=== PATIENT | female | born 1965 | race American Indian/Alaskan Native ===

== ENCOUNTER 2017-01-27 06:11 | Emergency (ER) | payer OTHER ==
[2017-01-27 06:11] VITALS: BMI 33.6
[2017-01-27 06:47] VITALS: RESP 18; TEMP 97.9; O2SAT 100
[2017-01-27] MEDS ORDERED: DiphenhydrAMINE 12.5 mg/5 ml LIQ UD (5 ml) PO STA (07:13)
--- NOTE | 2017-01-27 07:16 | ED PDOC ---
Arrival/HPI - General Chief Complaint: Eye Problem Time Seen by Provider: 01/27/17 07:06 Historian: Patient - History of Present Illness Narrative History of Present Illness (Text): 01/27/17 07:10 Tiffanie Muñoz is a 51 year old female whose past medical history includes hypertension, presents to the Emergency department complaining of left eye itchiness and watery discharge that began last night after 21:00. Patient notes she wears glasses, but does not wear contacts. She denies trauma to eye. Denies scratching eye. Patient denies shortness of breath, headache, fever, chills cough, nausea, vomiting, diarrhea, or other complaints. Time/Duration: Other (10 hours prior to arrival) Symptom Onset: Sudden Symptom Course: Unchanged Activities at Onset: Light Modifying Factors (Text): None Associated Symptoms (Text): blurry vision and watery discharge Past Medical History - Provider Review Nursing Documentation Reviewed: Yes - Infectious Disease Hx of Infectious Diseases: None - Tetanus Immunization Tetanus Immunization: Unknown - Cardiac Hx Cardiac Disorders: Yes (palpitations) Hx Hypertension: Yes - Pulmonary Hx Respiratory Disorders: Yes Hx Sleep Apnea: Yes (PT. WEARS CPAP MACHINE HS) - Neurological Hx Neurological Disorder: No Other/Comment: PT. FOR SURGERY 09/27/15- RIGHT ENDOSCOPIC CARPAL TUNNEL RELEASE , RIGHT ENDOSCOPIC CUBITAL TUNNEL RELEASE, STEROID INJECTIONS TO RIGHT MIDDLE, INDEX AND THUMB. DX: CARPAL TUNNEL TRIGGER FINGER. - HEENT Hx HEENT Disorder: No - Renal Hx Renal Disorder: No - Endocrine/Metabolic Hx Endocrine Disorders: No - Hematological/Oncological Hx Blood Disorders: No - Integumentary Hx Dermatological Disorder: Yes Hx Eczema: Yes (no longer) - Musculoskeletal/Rheumatological Hx Musculoskeletal Disorders: Yes Hx Back Pain: Yes Hx Herniated Disk: Yes (lumbar) Other/Comment: HX:CARPAL TUNNEL SYNDROME BILAT. - Gastrointestinal Hx Gastrointestinal Disorders: No - Genitourinary/Gynecological Hx Genitourinary Disorders: Yes (hx fibroid uterus) - Psychiatric Hx Psychophysiologic Disorder: No Hx Depression: No Hx Emotional Abuse: No Hx Physical Abuse: No Hx Substance Use: No - Surgical History Hx Hysterectomy: Yes Other/Comment: 03/29/16-EXCISION MASS LEFT HAND. 09/27/15-RIGHT CARPAL/ CUBITALTUNNEL RELEASE ENDOSCOPIC RIGHT ELBO WITH STEROID INJECTION THUMB, INDEX AND MIDDLE FINGERS. - Anesthesia Hx Anesthesia: Yes Hx Anesthesia Reactions: No Hx Malignant Hyperthermia: No - Suicidal Assessment Feels Threatened In Home Enviroment: No Family/Social History - Physician Review Nursing Documentation Reviewed: Yes Family/Social History: Unknown Family HX Smoking Status: Never Smoked Hx Alcohol Use: No Hx Substance Use: No Hx Substance Use Treatment: No Allergies/Home Meds Allergies/Adverse Reactions: Allergies amoxicillin Allergy (Severe, Verified 07/10/16 07:51) SWELLING Penicillins Allergy (Severe, Verified 01/27/17 06:20) SWELLING Home Medications: Home Meds Medication Instructions Recorded Confirmed Enalapril Maleate [Vasotec] 10 cap PO DAILY 09/27/15 01/27/17 Review of Systems - Review of Systems Constitutional: absent: Fevers Eyes: Other (itchiness, watery discharge to L eye). absent: Vision Changes, Photophobia ENT: absent: Hearing Changes, Sore Throat Respiratory: absent: SOB, Cough, Sputum, Wheezing Cardiovascular: absent: Chest Pain Gastrointestinal: absent: Abdominal Pain, Constipation, Diarrhea, Nausea, Vomiting Genitourinary Female: absent: Dysuria Musculoskeletal: absent: Neck Pain Skin: absent: Rash Neurological: absent: Headache Endocrine: absent: Diaphoresis Hemo/Lymphatic: absent: Easy Bleeding Psychiatric: absent: Anxiety Physical Exam Vital Signs Reviewed: Yes Vital Signs Temp Pulse Resp BP Pulse Ox 01/27/17 07:44 67 18 155/103 H 100 01/27/17 06:40 97.9 F 75 18 170/124 H 100 Temperature: Afebrile Blood Pressure: Hypertensive Pulse: Regular Respiratory Rate: Normal Appearance: Positive for: Well-Appearing, Non-Toxic, Comfortable Pain Distress: None Mental Status: Positive for: Alert and Oriented X 3 - Systems Exam Head: Present: Atraumatic, Normocephalic Pupils: Present: PERRL. No: Non-Reactive Extroacular Muscles: Present: EOMI, Other (L: lid everted and no foreign body visualized) Conjunctiva: Present: Injected (to L) Mouth: Present: Moist Mucous Membranes Pharnyx: Present: Normal. No: ERYTHEMA, EXUDATE Neck: Present: Normal Range of Motion, Other (supple) Respiratory/Chest: Present: Clear to Auscultation, Good Air Exchange. No: Respiratory Distress, Accessory Muscle Use Cardiovascular: Present: Regular Rate and Rhythm, Normal S1, S2. No: Murmurs Upper Extremity: Present: Normal Inspection. No: Cyanosis, Edema Lower Extremity: Present: Normal Inspection. No: Edema Neurological: Present: GCS=15, CN II-XII Intact, Speech Normal Skin: Present: Warm, Dry, Normal Color. No: Rashes Psychiatric: Present: Alert, Oriented x 3, Normal Insight, Normal Concentration Medical Decision Making ED Course and Treatment: 01/27/17 07:10 Impression: 51 year old with watery discharge and injected conjunctiva to L eye. No contact lens use. No foreign body visualized. Visual acuity grossly unchanged - 20/15 R eye, 20/30 L eye. Mild decrease is likely due to copious watery discharge and patient repeatedly rubbing eye due to itchiness. Plan: -- Benadryl for itching -- drops for conjunctivitis -- Reassess and disposition Progress Notes: Patient was instructed to take hypertension medication as BP elevated in ED. She was instructed to follow up with social worker aide. Reevaluation: On reevaluation the patient is in no acute distress. I have discussed the results and plan with the patient, who expresses understanding. Patient given the opportunity to ask question, all questions were answered and there is agreement with the plan to discharge the patient home with prescription for Benadryl. Patient is stable for discharge. Patient was instructed to follow up with physician/clinic in 1-2 days or return if symptoms persist/worsen or new concerning symptoms arise. - Medication Orders Current Medication Orders: Discontinued Medications Diphenhydramine HCl (Benadryl) 25 mg PO STAT STA Stop: 01/27/17 07:14 Last Admin: 01/27/17 07:32 Dose: 25 mg - Scribe Statement The provider has reviewed the documentation as recorded by the Scribe 12/27/2016 Ashley Giles Provider Scribe Attestation: All medical record entries made by the Scribe were at my direction and personally dictated by me. I have reviewed the chart and agree that the record accurately reflects my personal performance of the history, physical exam, medical decision making, and the department course for this patient. I have also personally directed, reviewed, and agree with the discharge instructions and disposition. Disposition/Present on Arrival - Present on Arrival Any Indicators Present on Arrival: No History of DVT/PE: No History of Uncontrolled Diabetes: No Urinary Catheter: No History of Decub. Ulcer: No History Surgical Site Infection Following: None - Disposition Have Diagnosis and Disposition been Completed?: Yes Diagnosis: Conjunctivitis Disposition: HOME/ ROUTINE Disposition Time: 07:44 Patient Plan: Discharge Condition: STABLE Discharge Instructions (ExitCare): Conjunctivitis (ED) Additional Instructions: Take drops for 10 days. Follow-up with eye doctor within 2 days for further evaluation. Return to ED if condition worsens. Prescriptions: Moxifloxacin HCl [Vigamox] 2 drop OS Q6 #1 bottle Referrals: Tariq Austin MD [Primary Care Provider] - Follow up with primary Eros Rain MD [Staff Provider] - Follow up with primary Forms: [facility] (Cambodian), WORK NOTE
[2017-01-27 07:45] VITALS: BP 155/103; PULSE 67
== END 2017-01-27 07:45 | disposition home or self-care (01) ==
LOC: ED 06:11
DX: H10.9 Unspecified conjunctivitis (principal)

== ENCOUNTER 2017-02-15 10:23 | Emergency (ER) | payer OTHER ==
[2017-02-15 10:23] VITALS: BMI 33.6
[2017-02-15] MEDS ORDERED: Oxycodone/Acetaminophen 5/325 mg Tab PO STA (10:34)
--- NOTE | 2017-02-15 10:38 | ED PDOC ---
Arrival/HPI - General Chief Complaint: Back Pain Time Seen by Provider: 02/15/17 10:24 Historian: Patient - History of Present Illness Narrative History of Present Illness (Text): 02/15/17 10:35 51-year-old female presents today with low back pain status post injury. Patient states she was attempting to move a heavy patient and the patient started to fall to the ground and she caught the patient and immediately felt a pulling sensation in the lower lumbar region. Patient states she feels like her back gave out on her. She denies numbness weakness or tingling in the lower extremities. She is complaining of severe pain in the low back radius in the right lower back. She describes the pain radiating into the buttocks bilaterally greatest on the right side. She denies bladder or bowel incontinence. Denies abdominal pain. No chest pain or shortness of breath. Incident occurred prior to arrival no medications have been taken for pain at home. Patient states she does have prior history of herniated disc. Time/Duration: Prior to Arrival Symptom Onset: Sudden Symptom Course: Unchanged Quality: Aching, Tightness, Stabbing Severity Level: Severe Past Medical History - Provider Review Nursing Documentation Reviewed: Yes - Travel History Have you recently traveled outside [place] w/in the past 3 mons?: No - Infectious Disease Hx of Infectious Diseases: None - Tetanus Immunization Tetanus Immunization: Unknown - Reproductive Menopause: Yes - Cardiac Hx Cardiac Disorders: Yes (palpitations) Hx Hypertension: Yes - Pulmonary Hx Respiratory Disorders: Yes Hx Sleep Apnea: Yes (PT. WEARS CPAP MACHINE HS) - Neurological Hx Neurological Disorder: No Other/Comment: PT. FOR SURGERY 09/27/15- RIGHT ENDOSCOPIC CARPAL TUNNEL RELEASE , RIGHT ENDOSCOPIC CUBITAL TUNNEL RELEASE, STEROID INJECTIONS TO RIGHT MIDDLE, INDEX AND THUMB. DX: CARPAL TUNNEL TRIGGER FINGER. - HEENT Hx HEENT Disorder: No - Renal Hx Renal Disorder: No - Endocrine/Metabolic Hx Endocrine Disorders: No - Hematological/Oncological Hx Blood Disorders: No - Integumentary Hx Dermatological Disorder: Yes Hx Eczema: Yes (no longer) - Musculoskeletal/Rheumatological Hx Musculoskeletal Disorders: Yes Hx Back Pain: Yes Hx Herniated Disk: Yes (lumbar) Other/Comment: HX:CARPAL TUNNEL SYNDROME BILAT. - Gastrointestinal Hx Gastrointestinal Disorders: No - Genitourinary/Gynecological Hx Genitourinary Disorders: Yes (hx fibroid uterus) - Psychiatric Hx Psychophysiologic Disorder: No Hx Depression: No Hx Emotional Abuse: No Hx Physical Abuse: No Hx Substance Use: No - Surgical History Hx Hysterectomy: Yes Other/Comment: 03/29/16-EXCISION MASS LEFT HAND. 09/27/15-RIGHT CARPAL/ CUBITALTUNNEL RELEASE ENDOSCOPIC RIGHT ELBO WITH STEROID INJECTION THUMB, INDEX AND MIDDLE FINGERS. - Anesthesia Hx Anesthesia: Yes Hx Anesthesia Reactions: No Hx Malignant Hyperthermia: No - Suicidal Assessment Feels Threatened In Home Enviroment: No Family/Social History - Physician Review Nursing Documentation Reviewed: Yes Family/Social History: Unknown Family HX Smoking Status: Never Smoked Hx Alcohol Use: Yes Frequency of alcohol use: Socially Hx Substance Use: No Hx Substance Use Treatment: No Allergies/Home Meds Allergies/Adverse Reactions: Allergies amoxicillin Allergy (Severe, Verified 02/15/17 10:29) SWELLING Penicillins Allergy (Severe, Verified 02/15/17 10:29) SWELLING Home Medications: Home Meds Medication Instructions Recorded Confirmed Enalapril Maleate [Vasotec] 10 cap PO DAILY 09/27/15 02/15/17 Review of Systems - Review of Systems Constitutional: absent: Fatigue, Fevers Respiratory: absent: SOB, Cough Cardiovascular: absent: Chest Pain, Palpitations Gastrointestinal: absent: Abdominal Pain, Nausea, Vomiting Genitourinary Female: Other (no bladder or bowel incontinence.). absent: Dysuria, Frequency, Hematuria, Urine Output Changes Musculoskeletal: Back Pain. absent: Arthralgias, Neck Pain Skin: absent: Rash, Pruritis Neurological: absent: Headache, Dizziness Psychiatric: absent: Anxiety, Depression Physical Exam Vital Signs Reviewed: Yes Vital Signs Temp Pulse Resp BP Pulse Ox 02/15/17 12:46 89 18 148/82 97 02/15/17 10:38 98.4 F 96 H 18 150/92 H 96 02/15/17 10:30 82 19 150/92 H 97 Temperature: Afebrile Blood Pressure: Hypertensive Pulse: Regular Respiratory Rate: Normal Appearance: Positive for: Well-Appearing, Non-Toxic, Comfortable Pain Distress: Mild Mental Status: Positive for: Alert and Oriented X 3 - Systems Exam Head: Present: Atraumatic Mouth: Present: Moist Mucous Membranes Respiratory/Chest: Present: Clear to Auscultation Cardiovascular: Present: Regular Rate and Rhythm Abdomen: No: Tenderness, Distention, Rebound, Guarding Back: Present: Normal Inspection, Midline Tenderness, Paraspinal Tenderness (b/ l low lumbar paraspinal tenderness), Pain with Leg Raise. No: CVA Tenderness Upper Extremity: Present: Normal ROM Lower Extremity: Present: Normal ROM Neurological: Present: GCS=15 Skin: Present: Warm, Dry, Normal Color. No: Rashes Psychiatric: Present: Alert, Oriented x 3 Medical Decision Making ED Course and Treatment: 02/15/17 10:38 Patient nontoxic well-appearing in no distress with stable vital signs. Toradol, Flexeril, percocet xray LS/spine; FINDINGS: Examination limited by habitus. BONES: Alignment appears satisfactory. No listhesis. No acute displaced fracture identified. Facet arthropathy evident at L5-S1. DISC SPACES: Unremarkable. OTHER FINDINGS: Pelvic calcifications, likely phleboliths. IMPRESSION: No acute displaced fracture identified. Facet arthropathy at L5-S1. Patient reassessment: Feeling better with medications ambulating with a steady gait. Muscle strength 5 out of 5 bilaterally. I advised to followup with the employee health within the next 2 days. Return if symptoms worsen persist or new symptoms develop Impression: Back pain Motrin every 6 hours as needed for pain Flexeril one tablet every 8 hours as needed for muscle spasms: May cause drowsiness percocet; one tablet every 6 hours as needed for moderate to severe pain: May cause drowsiness Followup with employee health on Friday Followup with primary care physician within the next 2 days Return if symptoms worsen persist or if new symptoms develop - RAD Interpretation Radiology Orders: 02/15/17 10:34 LS SPINE WITH OBL > 18 YRS OLD [RAD] Stat - Medication Orders Current Medication Orders: Discontinued Medications Cyclobenzaprine HCl (Flexeril) 10 mg PO STAT STA Stop: 02/15/17 10:35 Last Admin: 02/15/17 10:43 Dose: 10 mg Ketorolac Tromethamine (Toradol) 60 mg IM STAT STA Stop: 02/15/17 10:35 Last Admin: 02/15/17 10:43 Dose: 60 mg Oxycodone/Acetaminophen (Percocet 5/325 Mg Tab) 1 tab PO STAT STA Stop: 02/15/17 10:35 Last Admin: 02/15/17 10:43 Dose: 1 tab Disposition/Present on Arrival - Present on Arrival Any Indicators Present on Arrival: No History of DVT/PE: No History of Uncontrolled Diabetes: No Urinary Catheter: No History of Decub. Ulcer: No History Surgical Site Infection Following: None - Disposition Have Diagnosis and Disposition been Completed?: Yes Diagnosis: Back pain Disposition: HOME/ ROUTINE Disposition Time: 13:44 Patient Plan: Discharge Condition: GOOD Discharge Instructions (ExitCare): Acute Low Back Pain (ED) Additional Instructions: [facility] [employer] Regarding your Work Related Injury, you are instructed to do all of the following by next day: 1. Notify [facility] Employee Health Department of the sustained injury and arrange for any follow-up appointments if needed during the next business day. If the office is closed or no answer is received, please leave a detailed voice message. Message should include your full name, department and digital experience manager, date of injury, date of ED visit if applicable. [facility] can be reached at [phone]. 2. If there is time lost, notify [facility] Human Resources Department of the work related injury the next day at [phone]. Motrin every 6 hours as needed for pain Flexeril one tablet every 8 hours as needed for muscle spasms: May cause drowsiness percocet; one tablet every 6 hours as needed for moderate to severe pain: May cause drowsiness Followup with employee health on Friday Followup with primary care physician within the next 2 days Return if symptoms worsen persist or if new symptoms develop Prescriptions: Cyclobenzaprine [Cyclobenzaprine HCl] 10 mg PO Q8 #10 tab Ibuprofen [Motrin] 600 mg PO Q6H PRN #20 tab PRN Reason: pain/fever reduction oxyCODONE/Acetaminophen [Percocet 5/325 mg Tab] 1 tab PO Q6H PRN #6 tab PRN Reason: moderate to severe pain Forms: [facility] (Nepalese), WORK NOTE
[2017-02-15 11:01] VITALS: RESP 18; TEMP 98.4
--- NOTE | 2017-02-15 13:09 | RAD ---
PROCEDURE: Radiographs of the Lumbar Spine. HISTORY: back pain COMPARISON: Lumbar spine radiographs performed 07/22/14 FINDINGS: Examination limited by habitus. BONES: Alignment appears satisfactory. No listhesis. No acute displaced fracture identified. Facet arthropathy evident at L5-S1. DISC SPACES: Unremarkable. OTHER FINDINGS: Pelvic calcifications, likely phleboliths. IMPRESSION: No acute displaced fracture identified. Facet arthropathy at L5-S1.
[2017-02-15 13:27] VITALS: O2SAT 98
[2017-02-15 14:03] VITALS: BP 146/80; PULSE 76
== END 2017-02-15 14:03 | disposition home or self-care (01) ==
LOC: ED 10:23
DX: M54.5 Low back pain (principal)
CPT/HCPCS: 72110; 96372; 99285; J1885